=== PATIENT | female | born 1950 | race Caucasian/White ===

== ENCOUNTER → 2017-01-11 | Outpatient (CLI) | payer BC ==
[~2017-01-11] MED LIST: ASPIRIN E.C. 8181 MG PO; BORON PO; CENTRUM SILVER1 TA1 PO; CHROMIUM PICO200 MCG PO; COENZYME Q-1010 MG PO; FISH OIL CONC1000 MG PO; FORTAMET500 MG PO; MAGNESIUM OXIDE PO; OSCAL 500MG/VI500 MG PO
== END ==
LOC: MC.RAD 14:00
DX: Z12.31 Encounter for screening mammogram for malignant neoplasm of breast (principal)

== ENCOUNTER → 2017-03-08 | Outpatient (REF) ==
[2017-03-08 18:29] LABS: C-REACTIVE PROTEIN 1.9 mg/dL (0.0-0.9)
[2017-03-08 18:57] LABS: THYROID STIMULATING HORMONE 2.43 uIU/mL (0.465-4.680)
== END ==
LOC: ZLAB.WCH 17:59
PROVIDERS: Physician Assistant
DX: Z01.89 Encounter for other specified special examinations (principal)

== ENCOUNTER → 2017-06-07 | Outpatient (CLI) | payer BC | LOC: COL.RAD 11:37 | DX: N28.89 Other specified disorders of kidney and ureter (principal); Z96.0 Presence of urogenital implants ==

== ENCOUNTER → 2017-10-12 | Outpatient (CLI) | payer BC | LOC: COL.LAB 10:25 | DX: R25.2 Cramp and spasm (principal); E66.9 Obesity, unspecified; Z88.8 Allergy status to other drugs, medicaments and biological substances ==

== ENCOUNTER → 2019-08-01 | Outpatient (CLI) | payer MEDICARE, OTHER | LOC: COL.RAD 10:16 | DX: R93.41 Abnormal radiologic findings on diagnostic imaging of renal pelvis, ureter, or bladder (principal) ==

== ENCOUNTER → 2020-01-29 | Outpatient (CLI) | payer MEDICARE, OTHER | LOC: MC.RAD 11:45 | DX: Z12.31 Encounter for screening mammogram for malignant neoplasm of breast (principal) ==

== ENCOUNTER → 2020-10-03 | Outpatient (CLI) | payer MEDICARE, OTHER | LOC: COL.RAD 12:12 | DX: R10.12 Left upper quadrant pain (principal); R93.421 Abnormal radiologic findings on diagnostic imaging of right kidney ==

== ENCOUNTER → 2020-10-20 | Outpatient (CLI) | payer MEDICARE, OTHER | LOC: COL.RAD 09:55 | DX: I72.2 Aneurysm of renal artery (principal); D17.71 Benign lipomatous neoplasm of kidney; R93.421 Abnormal radiologic findings on diagnostic imaging of right kidney; R93.41 Abnormal radiologic findings on diagnostic imaging of renal pelvis, ureter, or bladder; Z90.49 Acquired absence of other specified parts of digestive tract; Z96.89 Presence of other specified functional implants | CPT/HCPCS: Q9967 ==

== ENCOUNTER → 2021-09-23 | Outpatient (CLI) | payer MEDICARE, OTHER | LOC: MC.RAD 10:48 | DX: Z12.31 Encounter for screening mammogram for malignant neoplasm of breast (principal) ==

== ENCOUNTER → 2023-05-31 | Outpatient (CLI) | payer MEDICARE, OTHER | LOC: CANSCHCLI → MC.RAD 12:55 | DX: Z12.31 Encounter for screening mammogram for malignant neoplasm of breast (principal) ==